=== PATIENT | female | born 2005 | race Caucasian/White ===

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

== ENCOUNTER 2023-02-22 15:26 | Outpatient (CLI) | payer OTHER, SELFPAY ==
[2023-02-22 15:40] LABS: Basophils Absolute Auto 0.01 K/mm3 (0.00-0.10); Basophils Percent Auto 0.1 % (0.0-1.0); Hematocrit 38.3 % (35.0-49.0); Hemoglobin 11.6 g/dL (12.0-15.0); Immature Granulocyte Absolute 0.01 K/mm3 (0.00-0.00); Immature Granulocyte Percent A 0.1 % (0.0-0.0); Lymphocytes Absolute Auto 1.64 K/mm3 (1.10-4.50); Lymphocytes Percent Auto 23.4 % (18.0-42.0); Mean Corpuscular HGB Conc 30.3 g/dL (32.0-36.0); Mean Corpuscular Hemoglobin 25.7 pg (27.0-31.0); Mean Corpuscular Volume 84.9 fL (78.0-102.0); Mean Platelet Volume 8.8 fl (9.2-11.8); Monocytes Absolute Auto 0.46 K/mm3 (0.10-0.90); Monocytes Percent Auto 6.6 % (2.0-11.0); Neutrophils Absolute Auto 4.9 K/mm3 (1.7-7.2); Neutrophils Percent Auto 69.8 % (50.0-70.0); Platelet Count Result 263 K/mm3 (150-420); Red Blood Count 4.51 M/mm3 (4.20-5.40); Red Cell Distribution Width 14.9 % (11.6-14.4)
[2023-02-22 16:17] LABS: Glucose 92 mg/dL (70-99); Iron 50 ug/dL (50-170); Percent Iron Saturation 15 % (12-57); Thyroid Stimulating Hormone 0.84 uIU/mL (0.52-4.13)
[2023-02-26 11:45] LABS: Testosterone Total 17 ng/dL (2-45)
[2023-02-26 15:40] LABS: FSH 4.8 mIU/mL (***); LH 9.4 mIU/mL (***); Prolactin 5.2 ng/mL (***)
[2023-02-27 11:05] LABS: Testosterone Free 4.9 pg/mL (0.2-5.0)
[2023-02-27 12:12] LABS: Insulin Level Total 32.8 uIU/mL (<=18.4)
[2023-03-02 19:22] LABS: DHEA-Sulfate 244 mcg/dL (51-321)
== END 2023-02-22 15:27 | disposition home or self-care (01) ==
LOC: CHSLAB 15:27
PROVIDERS: PCP Nurse Practitioner Family; Visit Provider Nurse Practitioner Family
DX: N92.6 Irregular menstruation, unspecified (principal)
CPT/HCPCS: 36415; 82627; 82947; 83001; 83002; 83498; 83525; 83540; 83550; 84146; 84402; 84403; 84443; 85025

== ENCOUNTER 2023-03-13 13:56 | Outpatient (RCR) | payer OTHER, SELFPAY ==
--- NOTE | 2023-03-13 15:09 | PTOPEVAL1 ---
Assessment and note entered by Fazal Sheridan Evaluation Information Assessment Status Evaluation Diagnosis dizziness, giddiness Onset 02/27/23 Subjective Information Pt. reports that she has had on/off dizziness for a couple years. She states that she has an episode of dizziness everytime she stands. She describes her dizziness as if the room is spinning . Pt. denies any hx of neck problems. She reports that she recalls no hx of head trauma. She states that she has no problem while laying down. She recalls on problems with her blood pressure. She states that her goal for therapy is to reduce her dizziness with standing. Reported Pain Level Pain Score 0: Self Report Assessment PT Clinical Summary Pt. enters the clinic due to developed dizziness with immediate standing. Vestibular testing is negative on this date. BP in supine, sitting and standing remains consistent indicating no orthostatic hypotension. Pt. demonstrates HR elevation of greater than 30 bpm in supine to standing postion consistent with POTS. Discussed diet and fluid intake with the pt. At this time encouraged the pt. to return to her doctor for further evaluation and consultation regarding POTS . Plan of Care Treatment Frequency and Follow up with her doctor regarding the results of Duration excessive HR from supine to standing position, consistent with POTS. These treatments will address the objective and functional deficits as defined above. The patient will be advanced safely and appropriately in order for the patient to progress towards his/her prior level of function. Additional exercises will be introduced and as well as a comprehensive home exercise program upon discharge, if needed, ?to ensure carryover of functional gains achieved in the clinic. This treatment plan has been reviewed and agreement upon by the patient.
== END 2023-03-13 16:04 | disposition home or self-care (01) ==
LOC: CHSPT 13:56
PROVIDERS: PCP Family Medicine; Visit Provider Nurse Practitioner Family
DX: R42 Dizziness and giddiness (principal)
CPT/HCPCS: 97161

== ENCOUNTER 2024-12-25 08:33 | Emergency (ER) | payer SELFPAY ==
--- NOTE | ~2024-12-25 | XR_ITS ---
EXAMINATION: XR abdomen obstructive series DATE: 12/25/2024 09:45 INDICATION: Nausea and vomiting TECHNIQUE: Frontal supine and upright views of the abdomen were obtained. COMPARISON: None. FINDINGS: Moderate amount of colonic gas and stool predominantly in the ascending and transverse colon. No dilated loops of gas-filled bowel to suggest obstruction. No free intraperitoneal gas. Visualized lung bases are clear. Heart size is normal. Bones are unremarkable. IMPRESSION: 1. No free intraperitoneal gas or dilated gas-filled loops of bowel to suggest obstruction. Reviewed, dictated and finalized at location A.
[2024-12-25 08:34] VITALS: BP 131/83; PULSE 92; RESP 16; TEMP 37; O2SAT 96
--- NOTE | 2024-12-25 08:49 | ED.NAVMDI ---
HPI - Nausea/Vomiting/Diarrhea General Chief complaint: Nausea/Vomiting/Diarrhea Stated complaint: vomiting & weakness Time Seen by Provider: 12/25/24 08:49 Source: patient Mode of arrival: ambulatory Limitations: no limitations History of Present Illness HPI Narrative: Patient is a 19-year-old female with recurrent and chronic nausea and vomiting for the past month or a bit longer. She lost insurance and stopped seeing doctors and stop taking her medication to include psychiatric medicine. She came today for the recurrent nausea vomiting this morning again. No abdominal pain. No concerns. No urinary changes. She does take control. MD elicited complaint: nausea and vomiting Pertinent past history: other (Anxiety/depression) Onset (ago): month(s) (1) Description of vomiting: food contents and watery Description of diarrhea: other (Occasional watery diarrhea but typically is formed stools) Associated nausea: Yes Associated abdominal pain: No Location of pain: none Radiation: does not radiate Pain consistency: other (No pain) Severity: mild Pain scale (0-10): 0 Quality: other (No pain) Exacerbating factors: none Relieving factors: none Context: other (Patient has 1 month history of recurrent nausea and vomiting without abdominal pain or chronic diarrhea) Associated symptoms: denies other symptoms Treatment prior to arrival: none Related Data Allergies Allergy/AdvReac Type Severity Reaction Status Date / Time z pack Allergy Mild unknown Uncoded 09/12/23 13:44 Review of Systems Review of Systems: All systems reviewed & are unremarkable except as noted in HPI and below Constitutional: Constitutional: Reports no additional constitutional complaints Eyes: Eyes: Reports no additional eye complaints ENT: Reports system reviewed and no additional complaints, except as documented Cardiovascular: Cardiovascular: Reports no additional cardiovascular complaints Respiratory: Respiratory: Reports no additional respiratory complaints Gastrointestinal: Gastrointestinal: Reports no additional gastrointestinal complaints Genitourinary: Genitourinary: Reports no additional female genitourinary complaints Musculoskeletal: Musculoskeletal: Reports no additional musculoskeletal complaints Integumentary/Breasts: Skin/Breast: Reports system reviewed and no additional complaints, except as docu Neurologic: Reports system reviewed and no additional complaints, except as documented Psychiatric: Psychiatric: Reports no additional psychiatric complaints Endocrine: Endocrine: Reports no additional endocrine complaints Hematologic/Lymphatic: Hematologic/Lymphatic: Reports no additional hematologic/lymphatic complaints Allergic/Immunologic: Allergic/Immunologic: Reports no additional allergic/immunologic complaints [facility] Past Medical History Medical History Calculus of kidney Anxiety and depression Family History Family History Father Lupus Rheumatoid arthritis Mother Bipolar 1 disorder Diabetes mellitus Grandparent Breast cancer Other , one passed, the other is still alive Breast cancer Social History Social History Smoking packs per day: 0 Smoking cigarettes per day: 0.0 Years smoked: 0 Smoking pack-years: 0.00 Smoking status: Never smoker Alcohol intake: never Substance use: never Lack of Transportation: No Lack of Food: Never True Current Housing: I Have Housing Concerned About Future Housing: No Difficulty Paying Gas/Electric Bills: No Difficulty Paying for Meds: No Currently Unemployed: No Difficulty w/ Childcare or Family Care: No Living arrangements: with family Additional living arrangements comments: with father. will be going to college, [employer] student housing as of November 18, 2022. 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 Gender identity (if verbalized by the patient): Other Additional gender identity comments: Nonbinary Exam Const: General: healthy appearing Nutritional Appearance: well nourished Orientation/consciousness: patient oriented x3 Limitations: no limitations HENMT: Head: normal to inspection Ears: external ears normal Face/Nose/Sinus: Normal external nose present Eyes: Conjunctivae: conjunctivae normal Cornea: corneas normal Pupils: Equal, round and reactive pupils present Neck: Neck: normal visual inspection Chest: Chest palpation & inspection: normal inspection of the chest Resp: Effort & Inspection: normal respiratory effort and not labored Auscultation: clear to auscultation bilaterally and no crackles Cardio: Rate: regular rate Rhythm: regular rhythm Heart sounds: no murmurs GI: Inspection: non-distended GI Palp: Yes Soft to palpation, No Tenderness to palpation present (GI), No Guarding due to palpation present (GI), No Rigid due to palpation, No Hernia present, No Palpable mass present and No Rebound tenderness present Auscultation: normal bowel sounds : General: Yes bladder normal to palpation Back/Spine/Pelvis: Back: no CVA tenderness Skin: General skin exam: normal color Rashes: no rashes Wounds: no wounds Neuro: General: patient oriented x3, moves all extremities, no meningeal signs and no focal motor deficits Extrem: General: normal to inspection, no clubbing, cyanosis or edema and no pedal edema Psych: Mental Status: mental status grossly normal Affect: normal affect Attitude: cooperative Course Vital Signs Vital signs: Vital Signs Temperature 37.0 C 12/25/24 08:34 Pulse Rate 92 12/25/24 08:34 Respiratory Rate 16 12/25/24 08:34 Blood Pressure 131/83 12/25/24 08:34 Pulse Oximetry 96 12/25/24 08:34 Oxygen Delivery Room Air 12/25/24 08:34 Temperature 37.0 C 12/25/24 08:34 Pulse Rate 92 12/25/24 08:34 Respiratory Rate 16 12/25/24 08:34 Blood Pressure 131/83 12/25/24 08:34 Pulse Oximetry 96 12/25/24 08:34 Oxygen Delivery Room Air 12/25/24 08:34 MDM - Nausea/Vomiting/Diarrhea MDM Narrative Medical decision making narrative: Patient is a 19-year-old female with recurrent nausea and vomiting here for evaluation. She does get GERD at times. We will do reassuring studies at this time. Likely add proton pump inhibitor. Lab Data Attestation: I reviewed the patient's lab results. 12/25/24 09:15 12/25/24 09:14 Labs: Lab Results 12/25/24 12/25/24 12/25/24 Range/Units 09:09 09:14 09:15 WBC 8.0 (4.8-10.8) K/mm3 RBC 4.75 (4.20-5.40) M/mm3 Hgb 12.2 (12.0-15.0) g/dL Hct 39.5 (35.0-49.0) % MCV 83.2 (78.0-102.0) fL MCH 25.7 L (27.0-31.0) pg MCHC 30.9 L (32-36) g/dL RDW 13.6 (11.6-14.4) % Plt Count 409 (150-420) K/mm3 MPV 9.2 (9.2-11.8) fl Immature Gran % (Auto) 0.2 H (0.0-0.0) % Neut % (Auto) 76.0 H (50.0-70.0) % Lymph % (Auto) 17.8 L (18.0-42.0) % [place] % (Auto) 5.5 (2.0-11.0) % Eos % (Auto) 0.1 L (1.0-6.0) % Baso % (Auto) 0.4 (0.0-1.0) % Lymph # (Auto) 1.43 (1.10-4.50) K/mm3 [place] # (Auto) 0.44 (0.10-0.90) K/mm3 Eos # (Auto) 0.01 L (0.02-0.50) K/mm3 Baso # (Auto) 0.03 (0.00-0.10) K/mm3 Abs Immat Gran (auto) 0.02 H (0.00-0.00) K/mm3 Absolute Neuts (auto) 6.09 (1.70-7.20) K/mm3 Absolute Nucleated RBC 0.00 (0.00-0.00) K/mm3 Nucleated RBC % 0.0 (0-0.0) % Sodium 141 (137-145) mmol/L Potassium 4.9 (3.4-5.0) mmol/L Chloride 106 (98-107) mmol/L Carbon Dioxide 24 (22-30) mmol/L Anion Gap 11 (4-12) mmol/L BUN 12 (7-17) mg/dL Creatinine 0.52 L (0.7-1.0) mg/dL Estim Creat Clear Calc 169 ml/min Estimated GFR > 60 (59 - ) Glucose 111 H (65-110) mg/dL Calculated Osmolality 292 (285-295) mOsm/kg Calcium 9.9 (8.4-10.2) mg/dL Total Bilirubin 0.8 (0.2-1.3) mg/dL AST 33 (14-36) U/L ALT 20 (6-35) U/L Alkaline Phosphatase 46 (38-126) U/L Total Protein 9.3 H (6.3-8.2) g/dL Albumin 4.5 (3.5-5.1) g/dL Lipase 25 (23-300) U/L Urine Color Light yellow (Yellow) Urine Appearance Clear (Clear) Urine pH 6.0 (5.0-8.0) Ur Specific [place] 1.010 (1.010-1.020) Urine Protein Negative (Negative) Urine Glucose (UA) Negative (Negative) Urine Ketones Negative (Negative) Ur Blood (Man) Trace-intact H (Negative) Urine Nitrate Negative (Negative) Urine Bilirubin Negative (Negative) Urine Urobilinogen 0.2 (0.2-1.0) mg/dL Leukocyte Esterase Rfl 1+ H (Negative) PETAR/UL Urine RBC 0-2 (0-2) /hpf Urine WBC 4-6 H (0-3) /hpf Ur Squamous Epith Cells Few (Few) /hpf Urine Bacteria 1+ H (None) /hpf Urine Mucus Few H /lpf Urine Test Negative Imaging Data Attestation: I personally reviewed and interpreted this imaging study as follows: Radiologist's impression: X-ray obstructive series of the abdomen was negative for acute process Discharge Plan Discharge Clinical Impression: Acute UTI, Nausea & vomiting, GERD (gastroesophageal reflux disease) Patient Disposition: Home Condition: Stable Instructions: Antibiotic Form, Urinary Tract Infection in Women (DC), GERD (Gastroesophageal Reflux Disease) (DC) Additional Instructions: Please follow-up with the primary doctor in the next week. I suggest a staff training and development manager for further evaluation of your recurrent and chronic nausea and vomiting. Patient Language: Micronesian Prescriptions: New pantoprazole 40 mg tablet,delayed release (DR/EC) 40 mg PO DAILY Qty: 20 0RF No Action norethindrone-e.estradiol-iron [Loestrin Fe 1.5/30 (28-Day)] 1.5 mg-30 mcg (21)/75 mg (7) tablet 1 tablet PO DAILY Qty: 84 3RF Follow-up/Referrals: UNKNOWN,DOCTOR [Non-Staff] Stand Alone Forms: Work/School Release IP Time of Disposition: 09:54
[2024-12-25 09:20] LABS: Hematocrit 39.5 % (35.0-49.0); Hemoglobin 12.2 g/dL (12.0-15.0); Immature Granulocyte Percent A 0.2 % (0.0-0.0); Lymphocytes Absolute Auto 1.43 K/mm3 (1.10-4.50); Mean Corpuscular HGB Conc 30.9 g/dL (32-36); Mean Corpuscular Hemoglobin 25.7 pg (27.0-31.0); Mean Corpuscular Volume 83.2 fL (78.0-102.0); Nucleated Red Blood Cells Absolute Auto 0.00 K/mm3 (0.00-0.00); Nucleated Red Blood Cells Perc 0.0 % (0-0.0); Platelet Count Result 409 K/mm3 (150-420); Red Blood Count 4.75 M/mm3 (4.20-5.40); White Blood Count 8.0 K/mm3 (4.8-10.8)
[2024-12-25 09:22] LABS: Add Urine Microscopic? YES; Appearance Urine Clear (Clear); Glucose Urine UA Negative (Negative); Leukocyte Esterase Ur 1+ LEU/UL (Negative); Nitrate Urine Negative (Negative); Specific Grav Ur 1.010 (1.010-1.020)
[2024-12-25 09:28] LABS: Pregnancy On Board Control Positive
[2024-12-25 09:33] LABS: Lipase 25 U/L (23-300)
[2024-12-25 09:34] LABS: Alanine Aminotransferase 20 U/L (6-35); Albumin Level 4.5 g/dL (3.5-5.1); Alkaline Phosphatase 46 U/L (38-126); Anion Gap 11 mmol/L (4-12); Aspartate Amino Transferase 33 U/L (14-36); Bilirubin,Total 0.8 mg/dL (0.2-1.3); Blood Urea Nitrogen 12 mg/dL (7-17); Calcium 9.9 mg/dL (8.4-10.2); Carbon Dioxide 24 mmol/L (22-30); Chloride 106 mmol/L (98-107); Estimated CRCL calculation 169 ml/min; Estimated Glomerular Filt Rate > 60; Glucose 111 mg/dL (65-110); Osmolality Calculated 292 mOsm/kg (285-295); Potassium 4.9 mmol/L (3.4-5.0); Sodium 141 mmol/L (137-145); Total Protein 9.3 g/dL (6.3-8.2)
[2024-12-25 09:59] VITALS: BP 114/75; PULSE 73; RESP 18; TEMP 36.6; O2SAT 99
--- NOTE | 2024-12-27 12:48 | PC.NURSE ---
FINAL URINE CULTURE CC MIXED UROGENITAL SWATI 10,000-25,[address] ROBLEDO NO FURTHER ORDERS NEEDED
== END 2024-12-25 10:07 | disposition home or self-care (01) ==
PROVIDERS: Emergency Provider Emergency Medicine; PCP Nurse Practitioner Family
DX: N39.0 Urinary tract infection, site not specified (principal); K21.9 Gastro-esophageal reflux disease without esophagitis
CPT/HCPCS: 36415; 74019; 80053; 81001; 81025; 83690; 85025; 87086; 99283

== ENCOUNTER 2025-01-10 03:17 | Emergency (ER) | payer SELFPAY ==
--- NOTE | ~2025-01-10 | CT_ITS ---
EXAMINATION: CT abdomen pelvis w con DATE: 01/10/2025 05:05 INDICATION: Right lower quadrant abdominal pain. TECHNIQUE: Computed tomography (CT) of the abdomen and pelvis was performed with 100 mL Omnipaque 350 intravenous contrast. Automated exposure control and iterative reconstruction technique were employed. The dose-length product was 1292.77 mGy-cm. COMPARISON: CT abdomen and pelvis 03/02/2021 FINDINGS: The visualized portions of the lung bases demonstrate minimal atelectasis on the left. No pleural effusion. The heart size is normal. No pericardial effusion. The liver, gallbladder, spleen, pancreas, adrenal glands, and left kidney are normal. There is a 5 mm cyst in right kidney. There is a 4 mm stone at right ureterovesicular junction. There is mild right hydroureter. There are no dilated loops of bowel. The appendix is normal. There are no pathologically enlarged lymph nodes. There is no free intraperitoneal fluid. There is mild thoracic and lumbar spondylosis. IMPRESSION: 1. 4 mm stone at right ureterovesicular junction with mild right hydroureter. I called this result to Dr. Plasencia. Reviewed, dictated and finalized at location E.
[2025-01-10 03:27] VITALS: BP 137/84; PULSE 86; RESP 18; TEMP 36.6; O2SAT 98
[2025-01-10 03:53] LABS: Add Urine Microscopic? YES; Appearance Urine Clear (Clear); Glucose Urine UA Negative (Negative); Leukocyte Esterase Ur Negative LEU/UL (Negative); Nitrate Urine Negative (Negative); Specific Grav Ur 1.020 (1.010-1.020)
[2025-01-10] MEDS: ONDANSETRON INJ 4 MG/2 ML VIAL IV PUSH ×2 (03:54→07:00)
[2025-01-10] MEDS: MORPHINE SULFATE (*CRX) 4 MG/ML INJ IV PUSH (03:54)
[2025-01-10] MEDS: SODIUM CHLORIDE 0.9% IV 1,000 ML 999 ML IV CONT (03:54)
[2025-01-10 04:00] LABS: Pregnancy On Board Control Positive
[2025-01-10 04:09] LABS: Hematocrit 34.8 % (35.0-49.0); Hemoglobin 10.5 g/dL (12.0-15.0); Immature Granulocyte Percent A 0.2 % (0.0-0.0); Lymphocytes Absolute Auto 1.51 K/mm3 (1.10-4.50); Mean Corpuscular HGB Conc 30.2 g/dL (32-36); Mean Corpuscular Hemoglobin 25.4 pg (27.0-31.0); Mean Corpuscular Volume 84.1 fL (78.0-102.0); Nucleated Red Blood Cells Absolute Auto 0.00 K/mm3 (0.00-0.00); Nucleated Red Blood Cells Perc 0.0 % (0-0.0); Platelet Count Result 294 K/mm3 (150-420); Red Blood Count 4.14 M/mm3 (4.20-5.40); White Blood Count 8.5 K/mm3 (4.8-10.8)
[2025-01-10 04:20] LABS: Alanine Aminotransferase 16 U/L (6-35); Albumin Level 3.9 g/dL (3.5-5.1); Alkaline Phosphatase 46 U/L (38-126); Anion Gap 6 mmol/L (4-12); Aspartate Amino Transferase 23 U/L (14-36); Bilirubin,Total 0.5 mg/dL (0.2-1.3); Blood Urea Nitrogen 11 mg/dL (7-17); Calcium 9.1 mg/dL (8.4-10.2); Carbon Dioxide 30 mmol/L (22-30); Chloride 105 mmol/L (98-107); Estimated CRCL calculation 125 ml/min; Estimated Glomerular Filt Rate > 60; Glucose 139 mg/dL (65-110); Lipase 39 U/L (23-300); Osmolality Calculated 293 mOsm/kg (285-295); Potassium 4.1 mmol/L (3.4-5.0); Sodium 141 mmol/L (137-145); Total Protein 7.1 g/dL (6.3-8.2)
[2025-01-10 04:23] LABS: INR 0.9; Partial Thromboplastin Time 25.6 Sec (23.9-30.70); Prothrombin Time 10.3 Seconds (9.50-12.1)
[2025-01-10 05:45] VITALS: BP 125/75; PULSE 78; RESP 18; O2SAT 99
--- NOTE | 2025-01-10 05:45 | PC.NURSE ---
Pt ambulated to [facility], informed on wait time for CT report. Pt states pain in her Rt flank area has decreased, no c/o at this time.
--- NOTE | 2025-01-10 06:41 | ED.ABDPAIN ---
HPI - Abdominal Pain General Chief Complaint: Abdominal Pain <Fazal Harry MD - Last Filed: 01/10/25 07:45> Stated Complaint: ABDOMINAL PAIN <Fazal Harry MD - Last Filed: 01/10/25 07:45> Time Seen by Provider: 01/10/25 07:55 <Fazal Harry MD - Last Filed: 01/10/25 07:45> Source: patient and family <Fazal Harry MD - Last Filed: 01/10/25 07:45> Mode of arrival: ambulatory <Fazal Harry MD - Last Filed: 01/10/25 07:45> History of Present Illness HPI narrative: this is a 19-year-old female with no significant past medical history presents with abdominal pain localizing to her right lower quadrant with no hematuria no dysuria no fever chills does have some nausea with no vomiting no diarrhea or constipation she rates her pain about 8/10, and started earlier this evening. Patient denies chest pain no shortness of breath <Fazal Harry MD - Last Filed: 01/10/25 07:45> MD elicited complaint: abdominal pain <Fazal Harry MD - Last Filed: 01/10/25 07:45> Onset (ago): hour(s) <Fazal Harry MD - Last Filed: 01/10/25 07:45> Pain Consistency: constant <Fazal Harry MD - Last Filed: 01/10/25 07:45> Quality: aching <MD Aisha Crowe Last Filed: 01/10/25 07:45> Radiation: RLQ <Fazal Harry MD - Last Filed: 01/10/25 07:45> Migration to: R flank <Fazal Harry MD - Last Filed: 01/10/25 07:45> Exacerbating factors: nothing <MD Aisha Crowe Last Filed: 01/10/25 07:45> Relieving factors: nothing <MD Aisha Crowe Last Filed: 01/10/25 07:45> Related Data Allergies/Adverse Reactions: Allergies Allergy/AdvReac Type Severity Reaction Status Date / Time No Known Allergies Allergy Verified 01/10/25 03:25 <Fazal Harry MD - Last Filed: 01/10/25 07:45> Review of Systems Review of Systems: All systems reviewed & are unremarkable except as noted in HPI and below <Fazal Harry MD - Last Filed: 01/10/25 07:45> PMFSH Past Medical History Medical History: Medical History Calculus of kidney Anxiety and depression <Fazal Harry MD - Last Filed: 01/10/25 07:45> Family History Family History: Family History Father Lupus Rheumatoid arthritis Mother Bipolar 1 disorder Diabetes mellitus Grandparent Breast cancer Other , one passed, the other is still alive Breast cancer <Fazal Harry MD - Last Filed: 01/10/25 07:45> Social History Social History: Social History Smoking packs per day: 0 Smoking cigarettes per day: 0.0 Years smoked: 0 Smoking pack-years: 0.00 Smoking status: Never smoker Alcohol intake: never Substance use: never Lack of Transportation: No Lack of Food: Never True Current Housing: I Have Housing Concerned About Future Housing: No Difficulty Paying Gas/Electric Bills: No Difficulty Paying for Meds: No Currently Unemployed: No Difficulty w/ Childcare or Family Care: No Living arrangements: with family Additional living arrangements comments: with father. will be going to college, dorm student housing as of November 18, 2022. 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 Gender identity (if verbalized by the patient): Other Additional gender identity comments: Nonbinary <Fazal Harry MD - Last Filed: 01/10/25 07:45> Exam Const: General: healthy appearing and no acute distress <Fazal Harry MD - Last Filed: 01/10/25 07:45> Nutritional Appearance: well nourished and obese <Fazal Harry MD - Last Filed: 01/10/25 07:45> Orientation/consciousness: patient oriented x3 <Fazal Harry MD - Last Filed: 01/10/25 07:45> Chest: Chest palpation & inspection: normal inspection of the chest <Fazal Harry MD - Last Filed: 01/10/25 07:45> Resp: Effort & Inspection: normal respiratory effort <Fazal Harry MD - Last Filed: 01/10/25 07:45> Auscultation: clear to auscultation bilaterally <Fazal Harry MD - Last Filed: 01/10/25 07:45> Cardio: Rate: regular rate <Fazal Harry MD - Last Filed: 01/10/25 07:45> Rhythm: regular rhythm <Fazal Harry MD - Last Filed: 01/10/25 07:45> GI: GI Palp: Yes Soft to palpation and Yes Tenderness to palpation present (GI) <Fazal Hrary MD - Last Filed: 01/10/25 07:45> Other: right lower quadrant pain elicited with palpation <Fazal Harry MD - Last Filed: 01/10/25 07:45> : General: Yes bladder normal to palpation <Fazal Harry MD - Last Filed: 01/10/25 07:45> Skin: General skin exam: normal color <Fazal Harry MD - Last Filed: 01/10/25 07:45> Neuro: General: patient oriented x3 and moves all extremities <Fazal Harry MD - Last Filed: 01/10/25 07:45> Extrem: General: normal to inspection, no clubbing, cyanosis or edema and no pedal edema <Fazal Harry MD - Last Filed: 01/10/25 07:45> Course Course Emergency Course: Medical decision making narrative: Patient was evaluated by myself in the emergency department. History obtained from the patient who is an independent historian and physical exam performed and witnessed by the nurse Sandy. External records Medical, were reviewed at this time. Patient received IV with IV fluids IV morphine and Zofran. Labs reviewed and had a normal white blood cell count, urinalysis showed red blood cells. CT scan pending at this time And will sign out patient to Dr. Shaikh <Fazal Harry MD - Last Filed: 01/10/25 07:45> Reevaluation(s) Reevaluation #1: I assumed care of this patient at shift change with pending CT and disposition. Reexamined the patient she is comfortably sitting on the bed in no discomfort informed her about the lab work, CT findings. <Roberto Plasencia MD - Last Filed: 01/10/25 08:00> Vital Signs Vital signs: Vital Signs Temperature 36.6 C 01/10/25 03:27 Pulse Rate 86 01/10/25 03:27 Respiratory Rate 18 01/10/25 03:27 Blood Pressure 137/84 01/10/25 03:27 Pulse Oximetry 98 01/10/25 03:27 Oxygen Delivery Room Air 01/10/25 03:27 Temperature 36.6 C 01/10/25 03:27 Pulse Rate 84 01/10/25 07:01 Respiratory Rate 18 01/10/25 07:01 Blood Pressure 118/74 01/10/25 07:01 Pulse Oximetry 100 01/10/25 07:01 Oxygen Delivery Room Air 01/10/25 07:01 <Fazal Harry MD - Last Filed: 01/10/25 07:45> Vital Signs Temperature 36.6 C 01/10/25 03:27 Pulse Rate 86 01/10/25 03:27 Respiratory Rate 18 01/10/25 03:27 Blood Pressure 137/84 01/10/25 03:27 Pulse Oximetry 98 01/10/25 03:27 Oxygen Delivery Room Air 01/10/25 03:27 Temperature 36.6 C 01/10/25 03:27 Pulse Rate 84 01/10/25 07:01 Respiratory Rate 18 01/10/25 07:01 Blood Pressure 118/74 01/10/25 07:01 Pulse Oximetry 100 01/10/25 07:01 Oxygen Delivery Room Air 01/10/25 07:01 <Roberto Plasencia MD - Last Filed: 01/10/25 08:00> MDM - Abdominal Pain Lab Data Result diagrams: 01/10/25 04:06 01/10/25 04:06 <Fazal Harry MD - Last Filed: 01/10/25 07:45> Labs: Lab Results 01/10/25 01/10/25 Range/Units 03:45 04:06 WBC 8.5 (4.8-10.8) K/mm3 RBC 4.14 L (4.20-5.40) M/mm3 Hgb 10.5 L (12.0-15.0) g/dL Hct 34.8 L (35.0-49.0) % MCV 84.1 (78.0-102.0) fL MCH 25.4 L (27.0-31.0) pg MCHC 30.2 L (32-36) g/dL RDW 13.6 (11.6-14.4) % Plt Count 294 (150-420) K/mm3 MPV 8.7 L (9.2-11.8) fl Immature Gran % (Auto) 0.2 H (0.0-0.0) % Neut % (Auto) 73.0 H (50.0-70.0) % Lymph % (Auto) 17.7 L (18.0-42.0) % [place] % (Auto) 7.4 (2.0-11.0) % Eos % (Auto) 1.3 (1.0-6.0) % Baso % (Auto) 0.4 (0.0-1.0) % Lymph # (Auto) 1.51 (1.10-4.50) K/mm3 [place] # (Auto) 0.63 (0.10-0.90) K/mm3 Eos # (Auto) 0.11 (0.02-0.50) K/mm3 Baso # (Auto) 0.03 (0.00-0.10) K/mm3 Abs Immat Gran (auto) 0.02 H (0.00-0.00) K/mm3 Absolute Neuts (auto) 6.23 (1.70-7.20) K/mm3 Absolute Nucleated RBC 0.00 (0.00-0.00) K/mm3 Nucleated RBC % 0.0 (0-0.0) % PT 10.3 (9.50-12.1) Seconds INR 0.9 APTT 25.6 (23.9-30.70) Sec Sodium 141 (137-145) mmol/L Potassium 4.1 (3.4-5.0) mmol/L Chloride 105 (98-107) mmol/L Carbon Dioxide 30 (22-30) mmol/L Anion Gap 6 (4-12) mmol/L BUN 11 (7-17) mg/dL Creatinine 0.73 (0.7-1.0) mg/dL Estim Creat Clear Calc 125 ml/min Estimated GFR > 60 (59 - ) Glucose 139 H (65-110) mg/dL Calculated Osmolality 293 (285-295) mOsm/kg Lactic Acid 1.2 (0.4-2.0) mmol/L Calcium 9.1 (8.4-10.2) mg/dL Total Bilirubin 0.5 (0.2-1.3) mg/dL AST 23 (14-36) U/L ALT 16 (6-35) U/L Alkaline Phosphatase 46 (38-126) U/L Total Protein 7.1 (6.3-8.2) g/dL Albumin 3.9 (3.5-5.1) g/dL Lipase 39 (23-300) U/L Urine Color Light yellow (Yellow) Urine Appearance Clear (Clear) Urine pH 5.5 (5.0-8.0) Ur Specific [place] 1.020 (1.010-1.020) Urine Protein Negative (Negative) Urine Glucose (UA) Negative (Negative) Urine Ketones Negative (Negative) Ur Blood (Man) 2+ H (Negative) Urine Nitrate Negative (Negative) Urine Bilirubin Negative (Negative) Urine Urobilinogen 0.2 (0.2-1.0) mg/dL Leukocyte Esterase Rfl Negative (Negative) PETAR/UL Urine RBC 6-10 H (0-2) /hpf Urine WBC 0-3 (0-3) /hpf Ur Squamous Epith Cells Rare (Few) /hpf Urine Bacteria Trace (None) /hpf Urine Test Negative <Fazal Harry MD - Last Filed: 01/10/25 07:45> Lab Results 01/10/25 01/10/25 Range/Units 03:45 04:06 WBC 8.5 (4.8-10.8) K/mm3 RBC 4.14 L (4.20-5.40) M/mm3 Hgb 10.5 L (12.0-15.0) g/dL Hct 34.8 L (35.0-49.0) % MCV 84.1 (78.0-102.0) fL MCH 25.4 L (27.0-31.0) pg MCHC 30.2 L (32-36) g/dL RDW 13.6 (11.6-14.4) % Plt Count 294 (150-420) K/mm3 MPV 8.7 L (9.2-11.8) fl Immature Gran % (Auto) 0.2 H (0.0-0.0) % Neut % (Auto) 73.0 H (50.0-70.0) % Lymph % (Auto) 17.7 L (18.0-42.0) % [place] % (Auto) 7.4 (2.0-11.0) % Eos % (Auto) 1.3 (1.0-6.0) % Baso % (Auto) 0.4 (0.0-1.0) % Lymph # (Auto) 1.51 (1.10-4.50) K/mm3 [place] # (Auto) 0.63 (0.10-0.90) K/mm3 Eos # (Auto) 0.11 (0.02-0.50) K/mm3 Baso # (Auto) 0.03 (0.00-0.10) K/mm3 Abs Immat Gran (auto) 0.02 H (0.00-0.00) K/mm3 Absolute Neuts (auto) 6.23 (1.70-7.20) K/mm3 Absolute Nucleated RBC 0.00 (0.00-0.00) K/mm3 Nucleated RBC % 0.0 (0-0.0) % PT 10.3 (9.50-12.1) Seconds INR 0.9 APTT 25.6 (23.9-30.70) Sec Sodium 141 (137-145) mmol/L Potassium 4.1 (3.4-5.0) mmol/L Chloride 105 (98-107) mmol/L Carbon Dioxide 30 (22-30) mmol/L Anion Gap 6 (4-12) mmol/L BUN 11 (7-17) mg/dL Creatinine 0.73 (0.7-1.0) mg/dL Estim Creat Clear Calc 125 ml/min Estimated GFR > 60 (59 - ) Glucose 139 H (65-110) mg/dL Calculated Osmolality 293 (285-295) mOsm/kg Lactic Acid 1.2 (0.4-2.0) mmol/L Calcium 9.1 (8.4-10.2) mg/dL Total Bilirubin 0.5 (0.2-1.3) mg/dL AST 23 (14-36) U/L ALT 16 (6-35) U/L Alkaline Phosphatase 46 (38-126) U/L Total Protein 7.1 (6.3-8.2) g/dL Albumin 3.9 (3.5-5.1) g/dL Lipase 39 (23-300) U/L Urine Color Light yellow (Yellow) Urine Appearance Clear (Clear) Urine pH 5.5 (5.0-8.0) Ur Specific [place] 1.020 (1.010-1.020) Urine Protein Negative (Negative) Urine Glucose (UA) Negative (Negative) Urine Ketones Negative (Negative) Ur Blood (Man) 2+ H (Negative) Urine Nitrate Negative (Negative) Urine Bilirubin Negative (Negative) Urine Urobilinogen 0.2 (0.2-1.0) mg/dL Leukocyte Esterase Rfl Negative (Negative) PETAR/UL Urine RBC 6-10 H (0-2) /hpf Urine WBC 0-3 (0-3) /hpf Ur Squamous Epith Cells Rare (Few) /hpf Urine Bacteria Trace (None) /hpf Urine Test Negative <Roberto Plasencia MD - Last Filed: 01/10/25 08:00> Critical Care Time Critical Care Time Critical Care Time: No <Fazal Harry MD - Last Filed: 01/10/25 07:45> Discharge Plan Discharge Clinical Impression: Abdominal pain, RLQ <Fazal Harry MD - Last Filed: 01/10/25 07:45> Patient Disposition: Home <Fazal Harry MD - Last Filed: 01/10/25 07:45> Condition: Stable <Fazal Harry MD - Last Filed: 01/10/25 07:45> Instructions: Kidney Stones (ED), Acute Abdominal Pain (ED) <Fazal Harry MD - Last Filed: 01/10/25 07:45> Additional Instructions: drink more fluids . <Fazal Harry MD - Last Filed: 01/10/25 07:45> Patient Language: Romanian <Fazal Harry MD - Last Filed: 01/10/25 07:45> Prescriptions: New ketorolac 10 mg tablet 10 mg PO Q6H PRN (Reason: pain) Qty: 14 0RF Rx Instructions: maximum total duration of 5 days from all oral, intranasal, or parenteral formulations No Action pantoprazole 40 mg tablet,delayed release (DR/EC) 40 mg PO DAILY Qty: 20 0RF cephalexin 500 mg capsule 500 mg PO BID 7 Days Qty: 14 0RF norethindrone-e.estradiol-iron [Loestrin Fe 1.5/30 (28-Day)] 1.5 mg-30 mcg (21)/75 mg (7) tablet 1 tablet PO DAILY Qty: 84 3RF <Fazal Harry MD - Last Filed: 01/10/25 07:45> Follow-up/Referrals: Puma Lovett, [employer] [Primary Care Provider, Family Practice] <Fazal Harry MD - Last Filed: 01/10/25 07:45> Time of Disposition: 08:00 <Fazal Harry MD - Last Filed: 01/10/25 07:45> 08:00 <Roberto Plasencia MD - Last Filed: 01/10/25 08:00>
--- NOTE | 2025-01-10 07:00 | PC.NURSE ---
Pt sitting bedside, zofran given per order for c/o increased nausea. Pt reports pain is better, still awaiting CT scan reports. VSS.
[2025-01-10 07:01] VITALS: BP 118/74; PULSE 84; RESP 18; O2SAT 100
[2025-01-10 07:59] VITALS: BP 104/62; PULSE 60; RESP 18; TEMP 36.2; O2SAT 99
== END 2025-01-10 08:20 | disposition home or self-care (01) ==
PROVIDERS: Emergency Medicine; Emergency Provider Family Medicine; PCP Nurse Practitioner Family
DX: R10.31 Right lower quadrant pain (principal)
CPT/HCPCS: 36415; 74177; 80053; 81001; 81025; 83605; 83690; 85025; 85610; 85730; 96361; 96374; 96375; 96376; 99284; J2270; J2405; J7030; Q9967